=== PATIENT | male | born 1965 | race Caucasian/White ===

== ENCOUNTER 2018-01-17 09:39 | Outpatient (CLI) | payer OTHER | END 2018-01-17 17:00 | disposition home or self-care (01) | LOC: TOM 09:39 | DX: N28.1 Cyst of kidney, acquired (principal) ==

== ENCOUNTER 2019-04-28 07:53 | Outpatient (CLI) | payer OTHER | END 2019-04-28 08:00 | disposition home or self-care (01) | LOC: TOM 07:53 | DX: N28.1 Cyst of kidney, acquired (principal) ==

== ENCOUNTER 2019-06-10 07:26 | Outpatient (CLI) | payer OTHER | END 2019-06-10 07:54 | disposition home or self-care (01) | LOC: LAB 07:26 | DX: N20.0 Calculus of kidney (principal) ==

== ENCOUNTER 2019-06-12 07:14 | Outpatient (CLI) | payer OTHER | END 2019-06-12 13:06 | disposition home or self-care (01) | LOC: MRI 07:14 | DX: N28.1 Cyst of kidney, acquired (principal) | CPT/HCPCS: 74183 ==

== ENCOUNTER 2020-02-28 08:32 | Outpatient (CLI) | payer OTHER | END 2020-02-28 08:46 | disposition home or self-care (01) | LOC: SONOGRAMA 08:32 | DX: N28.1 Cyst of kidney, acquired (principal) ==

== ENCOUNTER 2020-08-20 08:32 | Outpatient (CLI) | payer OTHER | END 2020-08-20 08:40 | disposition home or self-care (01) | LOC: SONOGRAMA 08:32 → MAMO-SONO 08:55 | PROVIDERS: ATTEND Urology | DX: N28.1 Cyst of kidney, acquired (principal) ==

== ENCOUNTER → 2020-09-05 | Outpatient (CLI) | payer OTHER | END | disposition home or self-care (01) | LOC: TOM 06:54 | PROVIDERS: ATTEND Urology | DX: N28.1 Cyst of kidney, acquired (principal) ==

== ENCOUNTER → 2021-04-03 | Outpatient (CLI) | payer OTHER | END | disposition home or self-care (01) | LOC: MRI 07:09 | PROVIDERS: ATTEND Urology | DX: N28.1 Cyst of kidney, acquired (principal) | CPT/HCPCS: 74181 ==

== ENCOUNTER → 2021-10-23 09:44 | Outpatient (CLI) | payer OTHER | END | disposition home or self-care (01) | LOC: LAB 09:44 | PROVIDERS: ATTEND Radiology Diagnostic Radiology | DX: N18.9 Chronic kidney disease, unspecified (principal) ==

== ENCOUNTER 2021-10-31 07:27 | Outpatient (CLI) | payer OTHER | END 2021-10-31 07:51 | disposition home or self-care (01) | LOC: MRI 07:27 | PROVIDERS: ATTEND Urology | DX: N28.1 Cyst of kidney, acquired (principal) | CPT/HCPCS: 74183 ==

== ENCOUNTER → 2022-04-17 09:00 | Outpatient (CLI) | payer OTHER | END | disposition home or self-care (01) | LOC: SONOGRAMA 09:00 | PROVIDERS: ATTEND Urology | DX: N28.1 Cyst of kidney, acquired (principal) ==

== ENCOUNTER 2022-06-15 07:17 | Outpatient (CLI) | payer OTHER | END 2022-06-15 07:20 | disposition home or self-care (01) | LOC: TOM 07:17 | PROVIDERS: ATTEND Urology | DX: N28.1 Cyst of kidney, acquired (principal); C64.1 Malignant neoplasm of right kidney, except renal pelvis ==

== ENCOUNTER 2025-03-21 07:04 | Outpatient (CLI) | payer OTHER | END 2025-03-21 07:12 | disposition home or self-care (01) | LOC: TOM 07:04 | PROVIDERS: ATTEND Internal Medicine Hematology & Oncology | DX: C64.1 Malignant neoplasm of right kidney, except renal pelvis (principal) ==